=== PATIENT | male | born 1940 | race African-American/Black ===

== ENCOUNTER 2016-10-28 08:09 | Outpatient (CLI) | payer BC, MEDICARE ==
[2016-10-28 09:19] LABS: MEAN CORPUSCULAR HEMOGLOBIN 23.5 pg (28.0-34.0); MEAN CORPUSCULAR VOLUME 77.9 fl (80.0-100.0)
[2016-10-28 09:37] LABS: eGFR (African) > 60; eGFR (Non-African) 53
[2016-10-28 09:48] LABS: BASOPHILS % 1 % (0-2); EOSINOPHILS % 1 % (0-7); MONOCYTES % 2 % (0-11); SEGMENTED NEUTROPHILS % 78 % (39-79)
== END 2016-10-28 08:10 ==
LOC: LAB 08:09
PROVIDERS: ATTEND Internal Medicine Gastroenterology
DX: Z94.4 Liver transplant status (principal); Z79.899 Other long term (current) drug therapy
CPT/HCPCS: 36415; 80053; 80197; 82977; 85025

== ENCOUNTER 2017-04-22 08:50 | Outpatient (CLI) | payer BC, MEDICARE ==
[2017-04-22 09:10] LABS: BASOPHILS % 0.3 (0.0-1.5); EOSINOPHILS % 1.5 % (0.0-6.8); MEAN CORPUSCULAR HEMOGLOBIN 22.5 pg (28.0-34.0); MEAN CORPUSCULAR VOLUME 74.1 fl (80.0-100.0); NEUTROPHILS # 4.1 # k/uL (1.4-7.7)
[2017-04-22 09:40] LABS: eGFR (African) 59; eGFR (Non-African) 48
== END 2017-04-22 08:52 ==
LOC: LAB 08:50
PROVIDERS: ATTEND Internal Medicine Gastroenterology
DX: Z79.899 Other long term (current) drug therapy (principal); Z94.4 Liver transplant status
CPT/HCPCS: 36415; 80053; 80197; 82977; 85025

== ENCOUNTER 2017-05-26 08:12 | Outpatient (CLI) | payer BC, MEDICARE ==
[2017-05-26 08:47] LABS: BASOPHILS % 0.5 (0.0-1.5); EOSINOPHILS % 2.5 % (0.0-6.8); MEAN CORPUSCULAR HEMOGLOBIN 23.4 pg (28.0-34.0); MONOCYTES % 8.4 % (0.0-11.0); NEUTROPHILS # 3.6 # k/uL (1.4-7.7)
[2017-05-26 09:14] LABS: eGFR (African) 59; eGFR (Non-African) 48
== END 2017-05-26 08:20 ==
LOC: LAB 08:12
PROVIDERS: ATTEND Internal Medicine Gastroenterology
DX: Z94.4 Liver transplant status (principal); Z79.899 Other long term (current) drug therapy
CPT/HCPCS: 36415; 80053; 80197; 82977; 85025